=== PATIENT | female | born 1985 | race Two or more races ===

== ENCOUNTER 2021-04-03 07:40 | Emergency (ER) | payer OTHER ==
[2021-04-03 07:52] VITALS: BP 114/75; PULSE 89; TEMP 98.2; BMI 22.6
== END 2021-04-03 08:47 | disposition home or self-care (01) ==
LOC: JER 07:40
DX: R05.1 Acute cough (principal); Z20.822 Contact with and (suspected) exposure to COVID-19
CPT/HCPCS: 87804; 99283-25; C9803; U0003; U0005